=== PATIENT | male | born 1965 | race Caucasian/White ===

== ENCOUNTER → 2019-11-09 09:15 | Outpatient (CLI) | payer BC, SELFPAY ==
--- NOTE | ~2019-11-09 | MR_ITS ---
EXAMINATION: MR elbow RT wo con DATE: 11/09/2019 10:04 INDICATION: Right elbow pain post lifting injury 2 1/2 months prior. TECHNIQUE: Magnetic resonance imaging (MRI) of the right elbow was performed without intravenous cont rast. Sequences included coronal, axial, and sagittal PD-weighted FS FSE and coronal, axial, and sagi ttal PD-weighted FSE. COMPARISON: None FINDINGS: Osseous/other: Normal alignment. Normal marrow signal with no marrow edema, fracture, osteochondral lesion or abnor mal marrow replacing process. Tendons: Triceps, biceps brachii and brachialis tendons are normal. The marker indicating the site of maximal pain is positioned anterior to the distal biceps brachii muscle belly which appears normal along the remaining musculature of the visualized distal upper arm and proximal forearm. Mild tendinopathy with out discrete tear at the medial epicondylar origin of the common flexor tendon wad. The common extens or tendon wad is normal. Ligaments: The medial and lateral collateral ligament complexes are normal. Cubital tunnel: Cubital tunnel is unremarkable with normal signal and caliber of the ulnar nerve. Fluid: Physiologic amount of fluid the elbow joint. IMPRESSION: 1. Medial epicondylitis with mild tendinopathy without discrete tear at the medial epicondylar origin of the common flexor tendon wad. Reviewed, dictated and finalized at location A. IMPRESSION: 1. Medial epicondylitis with mild tendinopathy without discrete tear at the med ial epicondylar origin of the common flexor tendon wad.
== END ==
PROVIDERS: Visit Provider Orthopaedic Surgery
DX: M77.01 Medial epicondylitis, right elbow (principal)
CPT/HCPCS: 73221

== ENCOUNTER 2020-11-26 03:52 | Emergency (ER) | payer BC, SELFPAY ==
--- NOTE | ~2020-11-26 | XR_ITS ---
EXAMINATION: XR chest 1V portable DATE: 11/26/2020 04:30 INDICATION: Chest constriction TECHNIQUE: frontal view of the chest was obtained. COMPARISON: None FINDINGS: The lungs are clear with no focal airspace opacities, pulmonary edema, pleural effusion or pneumothor ax. The cardiomediastinal silhouette is normal. Visualized bones and soft tissues are unremarkable. IMPRESSION: 1. No acute cardiopulmonary disease. Reviewed, dictated and finalized at location A.
[2020-11-26 04:01] VITALS: BP 169/94; PULSE 71; RESP 18; TEMP 36.3; O2SAT 100
--- NOTE | 2020-11-26 04:13 | ECG_ITS ---
Measurements Intervals [place] Rate: 60 P: 26 ND: 141 QRS: 40 QRSD: 84 T: 35 QT: 400 QTc: 401 Interpretive Statements SINUS RHYTHM BASELINE ARTIFACT- V4 NORMAL ECG Electronically Signed On 11-26-2020 6:39:57 CDT by Yohannes Killian D.O.
--- NOTE | 2020-11-26 04:14 | ED.GENADULT ---
HPI - General Adult General Chief complaint: Upper Respiratory Infection Stated complaint: sore throat/ chest cold Time Seen by Provider: 11/26/20 03:59 Source: patient and RN notes reviewed Mode of arrival: ambulatory Limitations: no limitations History of Present Illness HPI narrative: This is a 55 year old male who presents for evaluation of sore throat. Patient states he went out on a boat this weekend , and it was cold. He states he slept with windows open. He woke up on Wednesday with sore throat and nasal congestion. He reports this morning he felt like his chest was constricted although he is not having any trouble breath. He wanted to get checked for covid because he is unvaccinated. Related Data Allergies Allergy/AdvReac Type Severity Reaction Status Date / Time No Known Allergies Allergy Verified 11/26/20 05:23 Review of Systems Review of Systems: All systems reviewed & are unremarkable except as noted in HPI and below Constitutional: Constitutional: Denies chills and Denies fever(s) ENT: Reports nasal congestion and Reports sore throat Cardiovascular: Cardiovascular: Denies chest pain Respiratory: Respiratory: Reports chest congestion, Denies cough and Denies dyspnea PMFSH Past Medical History Medical History (Updated 11/26/20 @ 05:25 by Christy Zhang MD) Hypertension Social History Social History (Updated 11/26/20 @ 04:14 by Christy Zhang MD) Smoking status: Never smoker Exam Narrative: GENERAL: Well-appearing, well-nourished, and in no acute distress. HEAD: Normocephalic, atraumatic EYES: PERRLA and EOMI, conjunctiva clear without discharge EARS: TM's clear bilaterally without erythema or dullness NOSE: Nares clear, no rhinorrhea or epistaxis THROAT:Mucous membranes moist, mild pharyngeal erythema, no tonsillar enlargement or exudate. NECK: Supple, without lymphadenopathy or mass RESPIRATORY: No respiratory distress, Airway patent, Respirations non-labored, Clear to auscultation without rales, rhonchi or wheeze HEART: Regular rate and rhythm. No murmur heard. Normal peripheral pulses. ABDOMEN: Soft, nontender, nondistended, normal active bowel sounds. No masses. No rebound or guarding, No organomegaly. EXTREMITIES: No edema, normal strength with full range of motion. SKIN: Warm, dry, normal color without rash NEURO: Alert and oriented x3. CN 2-12 grossly intact. No focal deficits. PSYCH: Normal mood and affect. Course Reevaluation(s) Reevaluation #1: I Discussed with patient that influenza and strep were negative. His oropharynx was erythematous so will given antibiotics. He will be tested for covid as well and he knows he needs to quarantine. Date: 11/26/20 Time: 05:20 Vital Signs Vital signs: Vital Signs Temperature 97.3 F L 11/26/20 04:01 Pulse Rate 71 11/26/20 04:01 Respiratory Rate 18 11/26/20 04:01 Blood Pressure 169/94 H 11/26/20 04:01 Pulse Oximetry 100 11/26/20 04:01 Temperature 97.3 F L 11/26/20 04:01 Pulse Rate 81 11/26/20 06:17 Respiratory Rate 18 11/26/20 06:17 Blood Pressure 161/89 H 11/26/20 06:17 Pulse Oximetry 100 11/26/20 06:17 Medical Decision Making Vital Signs Vital Signs: Vital Signs Temperature 97.3 F L 11/26/20 04:01 Pulse Rate 71 11/26/20 04:01 Respiratory Rate 18 11/26/20 04:01 Blood Pressure 169/94 H 11/26/20 04:01 Pulse Oximetry 100 11/26/20 04:01 Temperature 97.3 F L 11/26/20 04:01 Pulse Rate 81 11/26/20 06:17 Respiratory Rate 18 11/26/20 06:17 Blood Pressure 161/89 H 11/26/20 06:17 Pulse Oximetry 100 11/26/20 06:17 Lab Data Labs: Lab Results 11/26/20 Range/Units 04:30 SARS-CoV-2 RNA (RT-PCR) Pending Influenza A Screen Negative Reference Range: Negative Influenza B Screen Negative Reference Range: Negative Strep Sc
[2020-11-26 06:17] VITALS: BP 161/89; PULSE 81; RESP 18; O2SAT 100
[2020-11-27 01:27] LABS: SARS-CoV-2 RNA PCR Negative
== END 2020-11-26 06:20 | disposition home or self-care (01) ==
LOC: ANHED 06:07
PROVIDERS: Emergency Provider General Practice; PCP Internal Medicine
DX: J06.9 Acute upper respiratory infection, unspecified (principal); Z20.822 Contact with and (suspected) exposure to COVID-19; I10 Essential (primary) hypertension
CPT/HCPCS: 71045; 87081; 87804; 87880; 93005; 99283; C9803; U0003; U0005

== ENCOUNTER 2023-07-27 14:34 | Outpatient (CLI) | payer BC, SELFPAY ==
--- NOTE | ~2023-07-27 | MR_ITS ---
MRI of the left knee Clinical history: Pain Technique: Coronal proton density and proton density-weighted images, sagittal proton-density and T2 fat-sat images, and axial proton-density fat-saturated images were acquired. Findings: Anterior and posterior cruciate ligament are intact. Medial collateral ligament and the lat eral collateral ligament complex are intact. Popliteus tendon is intact. There is focal complex tear of the body segment of the medial meniscus. No lateral meniscal tear seen . There is focal moderate chondral malacia the patellar apex. Femoral trochlear cartilage and straight a focal high-grade lesion along the lateral facet. Articular cartilage in the medial and lateral comp artments is relatively well-preserved, aside from focal moderate chondromalacia along the lateral tib ial plateau. Extensor mechanism intact. No significant joint effusion or Goodrich's cyst. Impression: Probable focal complex tear of the body segment of the medial meniscus. 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 Reviewed, dictated and finalized at location . Impression: Probable focal complex tear of the body segment of the medial meniscus. 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
== END 2023-07-27 14:35 | disposition home or self-care (01) ==
PROVIDERS: PCP Internal Medicine; Visit Provider Orthopaedic Surgery
DX: M94.262 Chondromalacia, left knee (principal)
CPT/HCPCS: 73721